=== PATIENT | female | born 1980 | race Hispanic/Latino ===

== ENCOUNTER 2017-07-30 22:58 | Emergency (ER) | payer OTHER ==
[2017-07-30 23:27] VITALS: BMI 24.7
[2017-07-30 23:31] VITALS: RESP 18; O2SAT 99
[2017-07-31] MEDS ORDERED: Sodium Chloride 0.9% 1,000 ML IV STA (01:02)
--- NOTE | 2017-07-31 01:02 | ED PDOC ---
HPI: General Adult Time Seen by Provider: 07/31/17 00:26 Chief Complaint (Nursing): GI Problem Chief Complaint (Provider): nausea History Per: Patient Additional Complaint(s): 37-year-old female presents to emergency department for evaluation of fatigue and nausea that started after she ran a marathon earlier today. Patient states she did not have anything to eat or drink before starting a 4 mile run in [place]. She was unable to make it through the run secondary to fatigue. Patient denies any syncope. No associated chest pain, shortness of breath or dyspnea on exertion. Patient came home after incompletion of race and ate and drank which made her feel somewhat better but she presents this evening with persistent fatigue and nausea with no vomiting. Patient is concerned she may have low sodium which she has had this in the past. PMD: in [facility] Past Medical History Reviewed: Historical Data, Nursing Documentation, Vital Signs Vital Signs: Last Vital Signs Temp 98.7 F 07/30/17 23:27 Pulse 83 07/30/17 23:27 Resp 18 07/30/17 23:27 BP 124/87 07/30/17 23:27 Pulse Ox 99 07/31/17 01:02 - Medical History PMH: No Chronic Diseases - Surgical History Surgical History: No Surg Hx - Family History Family History: States: No Known Family Hx - Living Arrangements Living Arrangements: With Friends/Others - Social History Current smoker - smoking cessation education provided: No Alcohol: Occasional Drugs: Denies - Allergies Allergies/Adverse Reactions: Allergies Allergy/AdvReac Type Severity Reaction Status Date / Time No Known Allergies Allergy Verified 07/30/17 23:27 Review of Systems ROS Statement: Except As Marked, All Systems Reviewed And Found Negative Constitutional: Positive for: Other (fatigue). Negative for: Fever, Chills Cardiovascular: Negative for: Chest Pain, Palpitations, Light Headedness Respiratory: Negative for: Cough Gastrointestinal: Positive for: Nausea. Negative for: Vomiting, Abdominal Pain , Diarrhea Genitourinary Female: Negative for: Dysuria Neurological: Negative for: Altered Mental Status, Headache, Dizziness Physical Exam - Reviewed Nursing Documentation Reviewed: Yes Vital Signs Reviewed: Yes - Physical Exam Appears: Positive for: Well, Non-toxic, No Acute Distress Skin: Negative for: Rash Eye Exam: Positive for: Normal appearance Cardiovascular/Chest: Positive for: Regular Rate, Rhythm Respiratory: Positive for: Normal Breath Sounds. Negative for: Wheezing, Respiratory Distress Gastrointestinal/Abdominal: Positive for: Soft. Negative for: Tenderness, Distended, Guarding, Rebound Back: Positive for: Normal Inspection Neurologic/Psych: Positive for: Alert, Oriented - Laboratory Results Result Diagrams: 07/31/17 01:07 07/31/17 01:07 Urine POC: Negative - ECG O2 Sat by Pulse Oximetry: 99 Pulse Ox Interpretation: Normal Medical Decision Making Medical Decision Makin37 year old with nausea and fatigue Plan: CBC CMP test IVF IV zofran EKG - ordered but patient refused Patient reports improvement in symptoms after fluids and Zofran given. Patient noted to be tolerating water and ED with no further emesis. Vital signs are stable. Advised fluids, rest and follow-up with primary doctor. Patient is aware she can return to ED any time if acutely worse. Disposition - Clinical Impression Clinical Impression: Fatigue - Patient ED Disposition Is Patient to be Admitted: No Counseled Patient/Family Regarding: Studies Performed, Diagnosis, Need For Followup - Disposition Referrals: LTAC, [facility] within [facility] [Outside] Disposition: Routine/Home Disposition Time: 02:11 Condition: STABLE Additional Instructions: Rest as much as possible and drink plenty of fluids. Follow up as needed with primary doctor or return to ED any time if acutely worse. Instructions: Fatigue (DC) Forms: [employer] ([place]ovenian)
[2017-07-31 01:10] LABS: BASO % 0.5 % (0.0-2.0); EOS % 0.3 % (0.0-4.0); HEMOGLOBIN 12.4 g/dL (12.0-16.0); LYMPH # 1.5 K/uL (1.0-4.3); LYMPH % 21.3 % (20.0-40.0); MEAN CELL VOLUME 89.1 fl (81.0-99.0); MEAN CORPUSCULAR HEMOGLOBIN 30.4 pg (27.0-31.0); MEAN CORPUSCULAR HGB CONC 34.1 g/dL (33.0-37.0); MEAN PLATELET VOLUME 7.8 fl (7.2-11.7); MONO # 0.5 K/uL (0.0-0.8); MONO % 6.5 % (0.0-10.0); NEUT # 4.9 K/uL (1.8-7.0); NEUT % 71.4 % (50.0-75.0); NRBC % 0.1 % (0.0-0.0); RBC 4.09 Mil/uL (3.80-5.20); RED CELL DISTRIBUTION WIDTH 13.1 % (11.5-14.5); WHITE BLOOD COUNT 6.9 K/uL (4.8-10.8)
[2017-07-31 01:30] LABS: ALB/GLOB RATIO 1.3 (1.0-2.1); ALBUMIN 4.3 g/dL (3.5-5.0); ALT/SGPT 34 U/L (9-52); AST/SGOT 24 U/L (14-36); BLOOD UREA NITROGEN 17 mg/dl (7-17); CALCIUM 9.6 mg/dL (8.4-10.2); GFR AFRICAN-AMERICAN > 60; GFR NON-AFRICAN AMERICAN > 60; LIPASE 87 U/L (23-300)
[2017-07-31 02:18] VITALS: BP 134/88; PULSE 88; TEMP 98.9
== END 2017-07-31 02:20 | disposition home or self-care (01) ==
LOC: H.ER 22:58
DX: R53.83 Other fatigue (principal); R11.0 Nausea
CPT/HCPCS: 80053; 83690; 85025; 99283; J2405; J7030